=== PATIENT | male | born 1995 | race Caucasian/White ===

== ENCOUNTER 2018-08-28 14:49 | Emergency (ER) | payer OTHER ==
--- NOTE | 2018-08-28 16:59 | RAD REPORT ---
EXAM DESCRIPTION: RAD - Shoulder Left 2 View - 08/28/2018 4:47 pm CLINICAL HISTORY: Slip and fall, left shoulder pain COMPARISON: None. TECHNIQUE: Internal and external rotation views of the left shoulder were obtained. FINDINGS: There is no fracture or dislocation. AC joint is normal in appearance. No acute or suspici ous findings. IMPRESSION: Negative two-view left shoulder examination.
--- NOTE | 2018-08-28 17:58 | EDPHYS ---
Physician Documentation [facility] Name: Andrey Terrazas Age: 22 yrs Sex: Male : 1995 Arrival Date: 08/28/2018 Time: 14:53 Bed 26 Private MD: ED Physician Selvin Richardson Historical: - Allergies: 08/28 14:58 No Known Allergies; aa5 - PMHx: 14:58 None; aa5 - PSHx: 14:58 Partial craniotomy; sinus SX; right arm; aa5 - Immunization history:: Adult Immunizations up to date. - Social history:: Smoking status: Patient uses tobacco products, smokes one pack cigarettes per day. - Ebola Screening: : No symptoms or risks identified at this time. Vital Signs: 14:58 BP 141 / 91; Pulse 97; Resp 16 S; Temp 99.0(TE); Pulse Ox 97% on R/A; Weight 113.4 kg aa5 (R); Height 6 ft. 0 in. (182.88 cm) (R); Pain 8/10; 17:45 BP 132 / 88; Pulse 69; Resp 14; Temp 98.7; Pulse Ox 99% on R/A; Pain 5/10; ls4 14:58 Body Mass Index 33.91 (113.40 kg, 182.88 cm) aa5 MDM: 15:39 Patient medically screened. [facility] 17:25 Data reviewed: vital signs, nurses notes. Counseling: I had a detailed discussion with ines the patient and/or guardian regarding: the historical points, exam findings, and any diagnostic results supporting the discharge/admit diagnosis, radiology results, the need for outpatient follow up, to return to the emergency department if symptoms worsen or persist or if there are any questions or concerns that arise at home. ED course: Patient advised to follow up with ortho for further evaluation. . 08/28 15:40 Order name: Shoulder Left (2 View) XRAY; Complete Time: 17:07 ines Administered Medications: No medications were administered Disposition: 08/29 10:07 Co-signature as Attending Physician, Selvin Richardson MD I agree with the assessment and [facility] plan of care. Disposition: 08/28/18 17:26 Discharged to Home. Impression: Other sprain of left shoulder joint. - Condition is Stable. - Discharge Instructions: Shoulder Sprain. - Prescriptions for Ibuprofen 800 mg Oral Tablet - take 1 tablet by ORAL route every 12 hours As needed take with food; 20 tablet. orphenadrine citrate 100 mg Oral Tablet Sustained Release - take 1 tablet by ORAL route 2 times per day As needed; 20 tablet. - Medication Reconciliation Form, Thank You Letter, Antibiotic Education, Prescription Opioid Use form. - Follow up: Private Physician; When: 2 - 3 days; Reason: Recheck today's complaints, Continuance of care, Re-evaluation by your physician. Addendum: 09/07/2018 10:11 Addendum: Patient complains of left shoulder pain after falling on a water slide j mm yesterday. Patient has a history of shoulder surgery to the right shoulder. Patient denies weakness or numbness. Pain is exacerbated by abduction. ROS: Positive for shoulder pain, otherwise negative. PE: GEN: NAD, RESP: Non labored resp, CARDIO: RRR, NEURO: A X O X 3, EXTREMITIES: Left anterior shoulder pain on palpation, pain elicited on abduction, full [employer] strength, full radial pulse, compartments are soft, NVI. PSYCH: CALM, COOPERATIVE. MDM: Xray results reviewed. No fracture. Patient is advised to follow up with ortho for further evaluation. Patient was otherwise given strict return precautions. Patient understood and agrees with the plan of care. Diagnosis: Shoulder sprain. Signatures: Dispatcher [employer] EDSelvin Zafar MD MD cha Mickail, Joel, PA PA jmm Calderon, Audri RN RN aa5 Whitney Ribeiro RN RN ls4 Corrections: (The following items were deleted from the chart) 08/28 17:46 17:26 08/28/2018 17:26 Discharged to Home. Impression: Other sprain of left shoulder ls4 joint. Condition is Stable. Forms are Medication Reconciliation Form, Thank You Letter, Antibiotic Education, Prescription Opioid Use. Follow up: Private Physician; When: 2 - 3 days; Reason: Recheck today's complaints, Continuance of care, Re-evaluation by your physician. ines
--- NOTE | 2018-08-28 17:58 | ER ---
Nurse's Notes [facility] Name: Andrey Terrazas Age: 22 yrs Sex: Male : 1995 Arrival Date: 08/28/2018 Time: 14:53 Bed 26 Private MD: Diagnosis: Other sprain of left shoulder joint Presentation: 08/28 14:56 Presenting complaint: Patient states: "I slipped going down a water slide yesterday and aa5 hurt my left shoulder". Transition of care: patient was not received from another setting of care. Onset of symptoms was August 2018. Risk Assessment: Do you want to hurt yourself or someone else? Patient reports no desire to harm self or others. Initial Sepsis Screen: Does the patient meet any 2 criteria? No. Patient's initial sepsis screen is negative. Does the patient have a suspected source of infection? No. Patient's initial sepsis screen is negative. Care prior to arrival: None. 14:56 Method Of Arrival: Ambulatory aa5 14:56 Acuity: KYRA 4 aa5 Triage Assessment: 16:26 General: Appears in no apparent distress. Behavior is calm, cooperative. Injury ls4 Description: Pt states he hurt in on water slide. Historical: - Allergies: 14:58 No Known Allergies; aa5 - PMHx: 14:58 None; aa5 - PSHx: 14:58 Partial craniotomy; sinus SX; right arm; aa5 - Immunization history:: Adult Immunizations up to date. - Social history:: Smoking status: Patient uses tobacco products, smokes one pack cigarettes per day. - Ebola Screening: : No symptoms or risks identified at this time. Screenin:08 Abuse screen: Denies threats or abuse. Denies injuries from another. Nutritional ls4 screening: No deficits noted. Tuberculosis screening: No symptoms or risk factors identified. Fall Risk None identified. Assessment: 16:17 Pain: Complains of pain in anterior aspect of left shoulder Pain currently is 8 out of ls4 10 on a pain scale. Quality of pain is described as aching. Neuro: No deficits noted. Cardiovascular: No deficits noted. Respiratory: No deficits noted. Musculoskeletal: Circulation, motion, and sensation intact. Capillary refill < 3 seconds, Range of motion: intact in all extremities, Reports pain in posterior aspect of left shoulder. 16:46 Reassessment: Patient appears in no apparent distress at this time. Patient and/or ls4 family updated on plan of care and expected duration. Pain level reassessed. Patient is alert, oriented x 3, equal unlabored respirations, skin warm/dry/pink. 17:45 Reassessment: Patient appears in no apparent distress at this time. Patient and/or ls4 family updated on plan of care and expected duration. Pain level reassessed. Patient is alert, oriented x 3, equal unlabored respirations, skin warm/dry/pink. Vital Signs: 14:58 BP 141 / 91; Pulse 97; Resp 16 S; Temp 99.0(TE); Pulse Ox 97% on R/A; Weight 113.4 kg aa5 (R); Height 6 ft. 0 in. (182.88 cm) (R); Pain 8/10; 17:45 BP 132 / 88; Pulse 69; Resp 14; Temp 98.7; Pulse Ox 99% on R/A; Pain 5/10; ls4 14:58 Body Mass Index 33.91 (113.40 kg, 182.88 cm) aa5 ED Course: 14:53 Patient arrived in ED. mr 14:56 Arm band placed on. aa5 14:57 Triage completed. aa5 15:07 Whitney Ribeiro, RN is Primary Nurse. ls4 15:08 Patient has correct armband on for positive identification. Bed in low position. Call ls4 light in reach. Side rails up X 1. Verbal reassurance given. 15:08 No provider procedures requiring assistance completed. ls4 15:12 Trevor Interiano PA is PHCP. [facility] 15:12 Selvin Richardson MD is Attending Physician. jmm 16:48 Shoulder Left (2 View) XRAY In Process Unspecified. EDMS 17:44 Patient did not have IV access during this emergency room visit. ls4 Administered Medications: No medications were administered Outcome: 17:26 Discharge ordered by . [facility] 17:43 Discharged to home ambulatory, with significant other. ls4 17:43 Condition: good 17:43 Discharge instructions given to patient, family, Instructed on discharge instructions, follow up and referral plans. medication usage, Demonstrated understanding of instructions, follow-up care, medications, Prescriptions given X 2. 17:46 Patient left the ED. ls4 Signatures: Dispatcher [employer] EDMS [facility] Center[facility], Trevor, PA PA jmm Barakat, [place] mr CopelandChristin lockhart, RN RN aa5 Whitney Ribeiro RN RN ls4
== END 2018-08-28 17:46 | disposition home or self-care (01) ==
LOC: ER 14:49
DX: S43.82XA Sprain of other specified parts of left shoulder girdle, initial encounter (principal); W19.XXXA Unspecified fall, initial encounter; Y93.18 Activity, surfing, windsurfing and boogie boarding; Y92.9 Unspecified place or not applicable; F17.210 Nicotine dependence, cigarettes, uncomplicated
CPT/HCPCS: 99283

== ENCOUNTER 2023-08-19 22:09 | Emergency (ER) | payer OTHER ==
--- NOTE | 2023-08-19 22:37 | ER ---
Nurse's Notes [facility] Name: Andrey Terrazas Age: 27 yrs Sex: Male : 1995 Arrival Date: 08/19/2023 Time: 22:09 Bed 4 Private MD: Diagnosis: Streptococcal tonsillitis Presentation: 08/18 22:24 Chief complaint: Patient states: I have had a sore throat for the past week. I saw some jb4 white spots on it and started taking some amoxicillin I had at home. Yesterday I felt fine, now my throat is more narrow, its harder to breath, and my left ear hurts. Coronavirus screen: At this time, the client does not indicate any symptoms associated with coronavirus-19. Ebola Screen: No symptoms or risks identified at this time. Initial Sepsis Screen: Does the patient meet any 2 criteria? No. Patient's initial sepsis screen is negative. Does the patient have a suspected source of infection? No. Patient's initial sepsis screen is negative. Risk Assessment: Do you want to hurt yourself or someone else? Patient reports no desire to harm self or others. Onset of symptoms was August 19, 2023. Transition of care: patient was not received from another setting of care. 22:24 Method Of Arrival: Ambulatory jb4 22:24 Acuity: KYRA 3 jb4 Triage Assessment: 22:56 General: Appears in no apparent distress. comfortable. EENT: Throat is reddened has bm8 patchy exudate has enlarged tonsils bilaterally with gag reflex present. Respiratory: Onset: The symptoms/episode began/occurred gradually, the patient has moderate shortness of breath. Historical: - Allergies: 22:25 No Known Allergies; jb4 - PMHx: 22:25 None; jb4 - PSHx: 22:25 neck; right arm; jb4 - Immunization history:: Adult Immunizations not up to date. - Infectious Disease History:: Denies. - Social history:: Smoking status: Patient/guardian denies using tobacco, but has a distant history of tobacco abuse, Patient uses street drugs, marijuana. Screenin:34 [facility] ED Fall Risk Assessment (Adult) History of falling in the last 3 months, bm8 including since admission No falls in past 3 months (0 pts) Confusion or Disorientation No (0 pts) Intoxicated or Sedated No (0 pts) Impaired Gait No (0 pts) Mobility Assist Device Used No (0 pt) Altered Elimination No (0 pt) Score/Fall Risk Level 0 - 2 = Low Risk Oriented to surroundings, Maintained a safe environment, Educated pt \T\ family on fall prevention, incl call for assistance when getting out of bed. Abuse screen: Denies threats or abuse. Nutritional screening: No deficits noted. Tuberculosis screening: No symptoms or risk factors identified. Assessment: 22:34 Reassessment: Patient appears in no apparent distress at this time. Patient and/or bm8 family updated on plan of care and expected duration. Pain level reassessed. Patient is alert, oriented x 3, equal unlabored respirations, skin warm/dry/pink. General: Appears in no apparent distress. comfortable, Behavior is calm, cooperative, appropriate for age. Pain: Complains of pain in throat Pain does not radiate. Pain currently is 5 out of 10 on a pain scale. Neuro: No deficits noted. Level of Consciousness is awake, alert, obeys commands, Oriented to person, place, time, situation, Appropriate for age. Cardiovascular: Denies chest pain, shortness of breath, Heart tones S1 S2 Capillary refill < 3 seconds Patient's skin is warm and dry. Respiratory: Airway is patent Trachea midline Respiratory effort is even, unlabored, Respiratory pattern is regular, symmetrical, Breath sounds are clear bilaterally. EENT: Throat is reddened has patchy exudate has enlarged tonsils bilaterally with gag reflex present, Reports sore throat feel like tonsils are super enlarged. 22:55 Reassessment: No changes from previously documented assessment. Patient and/or family bm8 updated on plan of care and expected duration. Pain level reassessed. Patient is alert, oriented x 3, equal unlabored respirations, skin warm/dry/pink. 22:56 Cardiovascular: Rhythm is regular. bm8 Vital Signs: 22:55 BP 131 / 69; Pulse 87; Resp 18; Temp 98.7; Pulse Ox 98% ; Pain 5/10; bm8 22:55 Pain Scale: Adult bm8 Varinder Coma Score: 22:34 Eye Response: spontaneous(4). Motor Response: obeys commands(6). Verbal Response: bm8 oriented(5). Total: 15. ED Course: 22:15 Patient arrived in ED. gm2 22:19 Wendy Girard FNP-C is [facility]. kb 22:19 Ward Juarez MD is Attending Physician. kb 22:25 Triage completed. jb4 22:25 Arm band placed on right wrist. jb4 22:34 Manuel Rothman, RN is Primary Nurse. bm8 22:34 Patient has correct armband on for positive identification. Bed in low position. Call bm8 light in reach. Client placed on continuous cardiac and pulse oximetry monitoring. NIBP monitoring applied. Pulse ox on. NIBP on. Door closed. Visitors limited. Verbal reassurance given. 22:34 No provider procedures requiring assistance completed. Patient did not have IV access bm8 during this emergency room visit. 22:56 Provided Education on: post er care. bm8 Administered Medications: 22:54 Drug: Dexamethasone IM 10 mg IM once Route: IM; Site: right deltoid; bm8 22:54 Drug: Amoxicillin-Clavulanate PO 875 mg PO once Route: PO; bm8 Medication: 22:34 VIS not applicable for this client. bm8 Outcome: 22:36 Discharge ordered by MD. kb 22:55 Discharged to home ambulatory, bm8 22:55 Condition: stable 22:55 Discharge instructions given to patient, Instructed on discharge instructions, follow up and referral plans. no drinking with medication, medication usage, safety practices, Demonstrated understanding of instructions, follow-up care, medications, Prescriptions given X 1, 22:58 Patient left the ED. bm8 Signatures: Wendy Girard FNP-C FNP-Cristian Martinez RN RN jb4 Mee Morris [facility] Manuel Rothman, RN RN bm8
--- NOTE | 2023-08-19 22:37 | EDPHYS ---
Physician Documentation [facility] Name: Andrey Terrazas Age: 27 yrs Sex: Male : 1995 Arrival Date: 08/19/2023 Time: 22:09 Bed 4 Private MD: ED Physician Ward Juarez HPI: 08/19 00:22 This 27 yrs old Male presents to ER via Ambulatory with complaints of Breathing kb Difficulty, Difficulty Swallowing, Sore Throat. 00:22 Pt is a 27 year old male who presents for sore throat and left ear pain that started kb last week. States he took some of his family members old antibiotics and it started getting better, but symptoms returned today. . Historical: - Allergies: 08/18 22:25 No Known Allergies; jb4 - PMHx: 22:25 None; jb4 - PSHx: 22:25 neck; right arm; jb4 - Immunization history:: Adult Immunizations not up to date. - Infectious Disease History:: Denies. - Social history:: Smoking status: Patient/guardian denies using tobacco, but has a distant history of tobacco abuse, Patient uses street drugs, marijuana. ROS: 08/19 00:20 Constitutional: As per HPI kb Exam: 00:20 Constitutional: This is a well developed, well nourished patient who is awake, alert, kb and in no acute distress. Head/Face: Normocephalic, atraumatic. Cardiovascular: Regular rate Respiratory: Respirations even and unlabored. No increased work of breathing. Talking in full sentences Skin: Warm, dry with normal turgor. Normal color. MS/ Extremity: Pulses equal, no cyanosis. Neurovascular intact. Full, normal range of motion. Neuro: Awake and alert, GCS 15, oriented to person, place, time, and situation. Moves all extremities. Normal gait. 00:20 ENT: External ear(s): are unremarkable, Ear canal(s): are normal, TM's: are normal, Posterior pharynx: Airway: normal, no evidence of obstruction, Tonsils: bilaterally enlarged, with erythema, swelling, that is moderate, erythema, that is moderate, exudate, that is mild, Vital Signs: 08/18 22:55 BP 131 / 69; Pulse 87; Resp 18; Temp 98.7; Pulse Ox 98% ; Pain 5/10; bm8 22:55 Pain Scale: Adult bm8 [place] Coma Score: 22:34 Eye Response: spontaneous(4). Motor Response: obeys commands(6). Verbal Response: bm8 oriented(5). Total: 15. MDM: 22:19 Patient medically screened. kb 08/19 00:21 Differential diagnosis: strep, tonsillitis, pharyngitis, [employer]. Data reviewed: vital kb signs, nurses notes. Test considered but Not performed: CT: ct soft tissue neck considered but erythema and swelling is to bilateral tonsils equally. . Counseling: I had a detailed discussion with the patient and/or guardian regarding the historical points, exam findings, and any diagnostic results supporting the discharge/admit diagnosis, the need for outpatient follow up, a family practitioner, to return to the emergency department if symptoms worsen or persist or if there are any questions or concerns that arise at home. 08/18 22:25 Order name: Strep kb Administered Medications: 08/18 22:54 Drug: Dexamethasone IM 10 mg IM once Route: IM; Site: right deltoid; bm8 22:54 Drug: Amoxicillin-Clavulanate PO 875 mg PO once Route: PO; bm8 Disposition: 08/19 04:08 Co-signature as Attending Physician, Ward Juarez MD I agree with the assessment sp4 and plan of care. I reviewed the patient's care provided by the Advanced Practice Provider and agree with the diagnosis and treatment plan. Disposition Summary: 08/19/23 22:36 Discharge Ordered Notes: Location: Home kb Condition: Stable kb Diagnosis - Streptococcal tonsillitis kb Followup: kb - With: Emergency Department - When: As needed - Reason: Worsening of condition Followup: kb - With: Private Physician - When: 2 - 3 days - Reason: Recheck today's complaints, Continuance of care, Re-evaluation by your physician Discharge Instructions: - Discharge Summary Sheet kb - Strep Throat, Pediatric, [id number] kb Forms: - Medication Reconciliation Form kb - Antibiotic Education kb - Prescription Opioid Use kb - Patient Portal Instructions kb - Leadership Thank You Letter kb Prescriptions: - Augmentin 875-125 mg Oral Tablet - take 1 tablet ORAL route every 12 hours for 10 days; 20 tablet; Refills: 0, kb Product Selection Permitted Signatures: Dispatcher [employer] EDWendy Ceron [employer]-C L[employer] AND GATE BUILDER-CkCristian Mcguire, RN RN jb4 Ward Juarez MD MD sp4 Manuel Rothman, RN RN bm8
[2023-08-19] MEDS ORDERED: AMOX/K CLAV 875 MG TAB ONE (22:39)
[2023-08-19] MEDS ORDERED: dexAMETHasone 10 MG/ML VIAL ONE (22:40)
== END 2023-08-19 22:58 | disposition home or self-care (01) ==
LOC: ER 22:09
DX: J03.00 Acute streptococcal tonsillitis, unspecified (principal)
CPT/HCPCS: 87081; 96372; 99284; J1100